=== PATIENT | male | born 1950 | race Caucasian/White ===

== ENCOUNTER 2018-05-20 18:15 | Emergency (ER) | payer OTHER ==
[~2018-05-20] VITALS: Ht 172.7 cm; Wt 84.1 kg
[2018-05-20 18:23] VITALS: BP 135/65
[2018-05-20 19:33] LABS: ANION GAP 5 mmol/L (5-15); CALCIUM 8.9 mg/dL (8.5-10.1); CHLORIDE 116 mmol/L (98-107)
[2018-05-20 19:35] LABS: CREATININE 1.71 mg/dL (0.7-1.3)
[2018-05-20] MEDS ORDERED: POTA20TA14 PO (19:35)
[2018-05-20] MEDS ORDERED: FURO-93 PO (19:35)
[2018-05-20] MEDS ORDERED: METF500T17 PO (19:35)
[2018-05-20] MEDS ORDERED: AMIO200T42 PO (19:35)
[2018-05-20] MEDS ORDERED: INSU100V8 SQ (19:35)
[2018-05-20] MEDS ORDERED: RANI150T4 PO (19:35)
[2018-05-20] MEDS ORDERED: WARF2TAB99 PO (19:35)
[2018-05-20] MEDS ORDERED: ATOR-2 PO (19:35)
[2018-05-20] MEDS ORDERED: PREG225C PO (19:35)
[2018-05-20] MEDS ORDERED: TRAZ-137 PO (19:35)
[2018-05-20] MEDS ORDERED: ASCO500T5 PO (19:35)
[2018-05-20] MEDS ORDERED: INSU100C5 SQ-INSULIN (19:35)
[2018-05-20] MEDS ORDERED: LISI-170 PO (19:35)
[2018-05-20] MEDS ORDERED: CARV12.52 PO (19:35)
--- NOTE | 2018-05-20 19:55 | NUR ---
PROVIDED PT WITH FOOD
--- NOTE | 2018-05-20 20:09 | NUR ---
PT'S CHART UP FOR RECHECK
--- NOTE | 2018-05-20 20:43 | NUR ---
TASK RN: Patient/Caregiver given discharge instructions and they have confirmed that they understand the instructions. Patient in his wheelchair. Taxi Voucher provided for wheelchair assist taxi. Pt has cell phone and verbalizes that he will call [facility] to let them know when the taxi leaves [place] so they will watch for his arrival
== END 2018-05-20 20:44 | disposition home or self-care (01) ==
LOC: ED 19:56
DX: E87.6 Hypokalemia (principal); E11.22 Type 2 diabetes mellitus with diabetic chronic kidney disease; I12.9 Hypertensive chronic kidney disease with stage 1 through stage 4 chronic kidney disease, or unspecified chronic kidney disease; N18.9 Chronic kidney disease, unspecified
CPT/HCPCS: 36415; 80048; 93005; 99284